=== PATIENT | male | born 1995 | race Caucasian/White ===

== ENCOUNTER 2023-05-26 22:33 | Emergency (ER) | payer OTHER, SELFPAY ==
[2023-05-26 22:35] VITALS: BP 161/103; PULSE 70; RESP 18; TEMP 37.1; O2SAT 98; BMI 32.1
--- NOTE | 2023-05-26 22:43 | ED.ABDPAIN1 ---
HPI - Abdominal Pain General Chief Complaint: Abdominal Pain Stated Complaint: SEVERE RIGHT SIDE PAIN Time Seen by Provider: 05/26/23 22:37 Source: patient Mode of arrival: walk-in History of Present Illness HPI narrative: 27-year-old male is brought emergency department by his father for evaluation of acute onset of pain in the right side of his abdomen associated with mild nausea. He denies any heavy lifting or strenuous activity prior to development of the pain. He has not vomited. He has not had a fever. His appetite is been normal today. He points to the right upper quadrant, right middle quadrant and right lower quadrant as area of greatest pain. He denies any flank pain. He has not had any urinary symptoms. He last ate eggs and sausage for dinner- his appetite has been normal today. He has not had any fever or chills. He does not have a history of kidney stones but according to the patient's father, the patient's uncle has had kidney stones. Related Data Allergies Allergy/AdvReac Type Severity Reaction Status Date / Time No Known Drug Allergies Allergy Verified 05/26/23 22:39 Review of Systems ROS Status of ROS 10 or more systems reviewed and unremarkable except as noted in history and below Exam Narrative Exam Narrative: Nurses note and vital signs reviewed and patient is not hypoxic. Blood pressure is noted to be elevated at 161/103 General: Mildly uncomfortable moderately overweight male, no respiratory distress, no active vomiting Skin: Warm, dry, no pallor noted. There is no rash noted. Head: Normocephalic, atraumatic Eye: Normal conjunctiva, no drainage, EOMI. PERRL Ears, Nose, Mouth, and Throat: oral mucosa is moist. Cardiovascular: Regular Rate and Rhythm S1S2, pulses are brisk and equal bilaterally Respiratory: Patient is in no distress, no accessory muscle use, lungs are clear to auscultation, no wheezing, rales or rhonchi Back: non-tender, no CVA tenderness bilaterally to percussion. GI:Abdomen is soft, nondistended, there is tenderness to palpation in the right upper quadrant and right lower quadrant, negative Rovsing sign, bowel sounds are normal. No appreciable hernia or pulsatile masses Musculoskeletal: The patient has no evidence of calf tenderness, no pitting edema, symmetrical pulses noted bilaterally Neurological: A&O x4, normal speech Psychiatric: Cooperative Constitutional Vital Signs, click to edit/add: Last Vital Signs Temp 98.7 F 05/26/23 22:35 Pulse 74 05/27/23 00:06 Resp 16 05/27/23 00:06 BP 149/82 H 05/27/23 00:06 Pulse Ox 100 05/27/23 00:06 O2 Del Method Room Air 05/27/23 00:06 Course Vital Signs Vital signs: Vital Signs Temperature 98.7 F 05/26/23 22:35 Pulse Rate 70 05/26/23 22:35 Respiratory Rate 18 05/26/23 22:35 Blood Pressure 161/103 H 05/26/23 22:35 Pulse Oximetry 98 05/26/23 22:35 Oxygen Delivery Method Room Air 05/26/23 22:35 Temperature 98.7 F 05/26/23 22:35 Pulse Rate 74 05/27/23 00:06 Respiratory Rate 16 05/27/23 00:06 Blood Pressure 149/82 H 05/27/23 00:06 Pulse Oximetry 100 05/27/23 00:06 Oxygen Delivery Method Room Air 05/27/23 00:06 MDM - Abdominal Pain MDM Narrative Medical decision making narrative: This otherwise healthy 27-year-old male is brought emergency department by his father for evaluation of acute onset of right-sided abdominal pain. The patient states the pain came on suddenly is associated with nausea. He denied any urinary symptoms. He had not had a fever. His appetite had been normal earlier in the day. He was mildly tender in his right upper quadrant and right lower quadrant, Rovsing's test was indeterminant, he was medicated emergency department with IV fluids, Zofran and Toradol with clinical improvement. On reevaluation he still had some degree of pain and was then medicated with an oral Percocet. He has a normal white count and hemoglobin. Electrolytes are normal with the exception of a mild elevation in his glucose. Urinalysis is negative for infection. Non contrast CT scan of the abdomen and pelvis shows a 3mm kidney stone at the right UVJ with mild hydroureter and is otherwise normal. He will be discharged home with Rx for percocet, zofran, toradol and Flomax. Medical Records Medical records narrative: [place] [address] CT Scan Report Signed Patient: GAIL DE GUZMAN MR#: [id number] : 1995 Acct:[id number] Age/Sex: 27 / M ADM Date: 05/26/23 Loc: ER Attending Dr: Ordering Physician: Winnie Mcneill Date of Service: 05/26/23 Procedure(s): CT abdomen pelvis wo con Accession Number(s): [id number] cc: Physician,Non-Staff M.D.~ [facility] [place] [address] Patient Name: GAIL DE GUZMAN MRN: [id number] date: 1995 Sex: M Assigned Patient Location: ER Current Patient Location: ER Accession/Order Number: [id number] Exam Date: 05/26/2023 22:50 Report Date: 05/26/2023 23:43 At the request of: WINNIE MCNEILL Procedure: CT abdomen pelvis wo con EXAM: CT abdomen pelvis wo con HISTORY: Right sided abd pain COMPARISON: None. TECHNIQUE: Noncontrast axial CT images through the abdomen and pelvis were obtained with coronal and sagittal reformats. Dose reduction techniques were achieved by using automated exposure control and/or adjustment of mA and/or kV according to patient size and/or use of iterative reconstruction technique. FINDINGS: The visualized portions of the lung bases are clear. Abdomen: Please note that the sensitivity for detection of focal lesions or vascular disease is markedly reduced without intravenous contrast. The liver and spleen are unremarkable. There is no intra or extrahepatic biliary duct dilatation. The gallbladder is unremarkable. There is a 2 mm nonobstructive right renal calculus. There is a 0.3 cm calculus at the right ureterovesicular junction with mild upstream hydroureter and hydronephrosis. The pancreas, adrenal glands, left kidney, and bowel loops, including the appendix, are unremarkable. There is no mesenteric or retroperitoneal lymphadenopathy. There is a small fat-containing umbilical hernia. Pelvis: The bladder demonstrates wall thickening. The rectum is unremarkable. There is no iliac or inguinal lymphadenopathy. There is a left L5 pars defect without anterolisthesis. Bone windows show no aggressive osseous lesions. CT/CT abdomen pelvis wo con IMPRESSION: 1. There is a 0.3 cm calculus at the right ureterovesicular junction with mild upstream hydroureter and hydronephrosis. 2. Nonobstructive right renal calculus. 3. Normal appendix. 4. Urinary bladder wall thickening. Please correlate with urinalysis for infection. 5. Left L5 pars defect without anterolisthesis. Lab Data Labs: Lab Results 05/26/23 05/26/23 Range/Units 22:45 23:30 WBC 9.3 (4.0-11.0) 10^3/uL RBC 4.75 (4.70-6.10) 10^6/uL Hgb 14.1 (14.0-18.0) g/dL Hct 40.9 L (42.0-54.0) % MCV 86.1 (80.0-94.0) fL MCH 29.7 (25.9-34.0) pg MCHC 34.5 (29.9-35.2) g/dL RDW 11.9 (11.0-15.0) % Plt Count 245 (150-450) 10^3/uL MPV 9.9 (9.5-13.5) fL Neut % (Auto) 60.8 (43.0-75.0) % Lymph % (Auto) 28.2 (20.5-60.0) % Coleman % (Auto) 9.0 (1.7-12.0) % Eos % (Auto) 1.5 (0.9-7.0) % Baso % (Auto) 0.3 (0.2-2.0) % Neut # (Auto) 5.7 (1.4-6.5) 10^3/uL Lymph # (Auto) 2.6 (1.2-3.8) 10^3/uL Coleman # (Auto) 0.8 (0.3-0.8) 10^3/uL Eos # (Auto) 0.1 (0.0-0.7) 10^3/uL Baso # (Auto) 0.0 (0.0-0.1) 10^3/uL Abs Immat Gran (auto) 0.02 (0.00-0.03) 10^3/uL Imm/Tot Granulo (auto) 0.2 (0.0-0.5) % Sodium 141 (136-145) mmol/L Potassium 3.4 L (3.5-5.1) mmol/L Chloride 106 (98-107) mmol/L Carbon Dioxide 25.4 (21.0-32.0) mmol/L Anion Gap 13.0 BUN 17.0 (7.0-18.0) mg/dL Creatinine 1.20 (0.70-1.30) mg/dL Est GFR ( Amer) >60 (>=60) Est GFR (Non-Af Amer) >60 (>=60) BUN/Creatinine Ratio 14.2 Glucose 140 H (74-106) mg/dL Calcium 9.0 (8.5-10.1) mg/dL Total Bilirubin 0.3 (0.2-1.0) mg/dL AST 11 L (15-37) U/L ALT 31 (16-63) U/L Alkaline Phosphatase 65 (46-116) U/L Total Protein 7.4 (6.4-8.2) g/dL Albumin 3.9 (3.4-5.0) g/dL Globulin 3.5 g/dL Albumin/Globulin Ratio 1.1 Urine Color Lt. yellow (YELLOW) Urine Clarity Clear (CLEAR) Urine pH 8.0 (5.0-9.0) Ur Specific [place] 1.015 (1.005-1.025) Urine Protein Negative (NEG/TRACE) mg/dL Urine Glucose (UA) Negative (NEGATIVE) mg/dL Urine Ketones Negative (NEGATIVE) mg/dL Urine Occult Blood Negative (NEGATIVE) Urine Nitrite Negative (NEGATIVE) Urine Bilirubin Negative (NEGATIVE) Urine Urobilinogen 0.2 (0.2-1.0) EU/dL Ur Leukocyte Esterase Negative (NEGATIVE) Urine RBC 0-2 (0-2) #/HPF Urine WBC None seen (NONE SEEN) #/HPF Ur Squamous Epith Cells None seen (NONE/RARE) #/LPF Urine Crystals None seen (None Seen) #/HPF Urine Bacteria None seen (NONE SEEN) #/HPF Urine Casts None seen (NONE SEEN) #/LPF Urine Mucus None seen (NONE SEEN) Discharge Plan Discharge Chief Complaint: Abdominal Pain Clinical Impression: Calculus of kidney Patient Disposition: Home, Self-Care Time of Disposition Decision: 23:55 Condition: Good Instructions: Kidney Stones (ED), Hydronephrosis (ED) Stand Alone Forms: Portal Instructions Referrals: Physician,Non-Staff, MD [Primary Care Provider] - 1 week
[2023-05-26] MEDS: KETOROLAC TROMETHAMINE 30 MG/ML VIAL IVP (23:03)
[2023-05-26] MEDS: ONDANSETRON PF 4 MG/2 ML VIAL IV (23:03)
[2023-05-26 23:04] LABS: Basophils Percent Auto 0.3 % (0.2-2.0); Eosinophils Absolute Auto 0.1 10^3/uL (0.0-0.7); Eosinophils Percent Auto 1.5 % (0.9-7.0); Hematocrit 40.9 % (42.0-54.0); Hemoglobin 14.1 g/dL (14.0-18.0); Immature Granulocytes Abs Auto 0.02 10^3/uL (0.00-0.03); Immature Granulocytes Pct Auto 0.2 % (0.0-0.5); Lymphocytes Absolute Auto 2.6 10^3/uL (1.2-3.8); Lymphocytes Percent Auto 28.2 % (20.5-60.0); Mean Corpuscular HGB Conc 34.5 g/dL (29.9-35.2); Mean Corpuscular Hemoglobin 29.7 pg (25.9-34.0); Mean Corpuscular Volume 86.1 fL (80.0-94.0); Mean Platelet Volume 9.9 fL (9.5-13.5); Monocytes Absolute Auto 0.8 10^3/uL (0.3-0.8); Neutrophils Absolute Auto 5.7 10^3/uL (1.4-6.5); Neutrophils Percent Auto 60.8 % (43.0-75.0); Platelet Count 245 10^3/uL (150-450); Red Blood Count 4.75 10^6/uL (4.70-6.10); Red Cell Distribution Width 11.9 % (11.0-15.0); White Blood Count 9.3 10^3/uL (4.0-11.0)
[2023-05-26 23:19] LABS: Alanine Aminotransferase 31 U/L (16-63); Albumin Globulin Ratio 1.1; Albumin Level 3.9 g/dL (3.4-5.0); Alkaline Phosphatase 65 U/L (46-116); Aspartate Amino Transferase 11 U/L (15-37); BUN Creatinine Ratio 14.2; Bilirubin Total 0.3 mg/dL (0.2-1.0); Carbon Dioxide 25.4 mmol/L (21.0-32.0); Chloride 106 mmol/L (98-107); Estimated GFR (African America >60 (>=60); Estimated GFR (Non-African Ame >60 (>=60); Globulin 3.5 g/dL; Glucose 140 mg/dL (74-106); Potassium 3.4 mmol/L (3.5-5.1); Sodium 141 mmol/L (136-145); Total Protein 7.4 g/dL (6.4-8.2)
--- NOTE | 2023-05-26 23:39 | PC.NURSE ---
URINE TO LAB, CLOUDY IN COLOR.
[2023-05-26] MEDS: OXYCODONE HCL/ACETAMINOPHEN 5MG/325MG 1 TAB PO (23:47)
[2023-05-26] MEDS: 0.9 % SODIUM CHLORIDE 1,000 ML 1000 ML IV (23:47)
[2023-05-27 00:06] VITALS: BP 149/82; PULSE 74; RESP 16; O2SAT 100
[2023-05-27 00:06] LABS: Bilirubin Urine NEGATIVE (NEGATIVE); Blood Urine NEGATIVE (NEGATIVE); Clarity Urine CLEAR (CLEAR); Color Urine LT. YELLOW (YELLOW); Glucose Urine UA NEGATIVE (NEGATIVE); Ketones Urine NEGATIVE (NEGATIVE); Leukocyte Esterase Urine NEGATIVE (NEGATIVE); Nitrite Urine NEGATIVE (NEGATIVE); Protein Urine NEGATIVE (NEG/TRACE); Specific Gravity Urine 1.015 (1.005-1.025); Urobilinogen Urine 0.2 EU/dL (0.2-1.0)
[2023-05-27 00:21] LABS: Bacteria Urine NONE SEEN #/HPF (NONE SEEN); Cast Seen? NONE SEEN #/LPF (NONE SEEN); Crystals Seen? None Seen #/HPF (None Seen); Mucus Urine NONE SEEN (NONE SEEN); RBC Urine 0-2 #/HPF (0-2); Squamous Epithelial Cell Urine NONE SEEN #/LPF (NONE/RARE); WBC Urine NONE SEEN #/HPF (NONE SEEN)
[2023-05-27] MEDS: OXYCODONE HCL/ACETAMINOPHEN 5MG/325MG 2 TAB PO (00:52)
[2023-05-27] MEDS: ONDANSETRON 4 MG RAPDIS TABLET SL (00:52)
== END 2023-05-27 01:00 | disposition home or self-care (01) ==
PROVIDERS: Emergency Provider Emergency Medicine
DX: N13.2 Hydronephrosis with renal and ureteral calculous obstruction (principal)
CPT/HCPCS: 36415; 74176; 80053; 81001; 85025; 96374; 96375; 99284; J1885; J2405; Q0162

== ENCOUNTER 2025-03-14 19:32 | Emergency (ER) | payer OTHER, SELFPAY ==
[2025-03-14 19:36] VITALS: BP 159/94; PULSE 64; TEMP 37; O2SAT 98; BMI 34.7
--- OUTSIDE RECORDS SUMMARY | 2025-03-14 19:45 | XMS_ITS | CCD ---
Author Organization [facility] Care Team Providers Care Cargo Checker Name Role Phone MECHELLE NIEVES Attending Unavailable EZEQUIEL, MECHELLE Admitting Unavailable EZEQUIEL, MECHELLE Consulting Unavailable EZEQUIEL, MECHELLE Attending Unavailable EZEQUIEL, MECHELLE Admitting Unavailable Problems Problem ClassificationProblemDateDocumented DateEpisodic/ChronicHeadache; including migraine (1 source)Headache; including migraine; Translations: [HEADACHE UNSPECIFIED] Onset: [id number] and screening for infectious disease (3 sources)Contact with and (suspected) exposure to other viral communicable diseases; Translations: [CONTCT EXPS OTH VIRL COMMUNICABL DZ]Onset: 05-09-2020 EpisodicOther upper respiratory disease (1 source)Nasal congestion; Translations: [NASAL CONGESTION]Onset: 06-13-2020 EpisodicUnclassified (1 source)COVID-19; Translations: [COVID-19]Onset: 06-13-2020 Results Test NameValueInterpretationReference RangeFacilityCovid-19 PCR (CVDTBH)on 86-93-3254Kmowz-19 PCRDETECTEDAbnormalNOT DETECTEDThe [facility] SystemComment on above:Result Comment: This test is not yet approved or cleared by the [place] FDA. When there are no FDA-approved or cleared tests available, and other criteria are met, FDA can make tests available under an emergency access mechanism called an Emergency Use Authorization (EUA). The EUA for this test is supported by the [place] of Health and Human Service's (HHS's) declaration that circumstances exist to justify the emergency use of in vitro diagnostics for the detection and/or diagnosis of the virus that causes COVID-19. This EUA will remain in effect (meaning this test can be used) for the duration of the COVID-19 declaration justifying emergency of IVDs, unless it is terminated or revoked by FDA (after which the test may no longer be used).Performed By: #### CVDTBH #### [facility] [address] [place], [place] [address] Piper Spain [facility], AvonComment on above: Result Comment: This test is not yet approved or cleared by the [place] FDA. When there are no FDA-approved or cleared tests available, and other criteria are met, FDA can make tests available under an emergency access mechanism called an Emergency Use Authorization (EUA). The EUA for this test is supported by the Cartridge Loading Operator of Health and Human Service?s (HHS?s) declaration that circumstances exist to justify the emergency use of in vitro diagnostics for the detection and/or diagnosis of the virus that causes COVID-19. This EUA will remain in effect (meaning this test can be used) for the duration of the COVID-19 declaration justifying emergency of IVDs, unless it is terminated or revoked by FDA (after which the test may no longer be used). When diagnostic testing is negative, the possibility of a false negative should be considered in the context of a patients recent exposures andthe presence of clinical signs and symptoms consistent with SARS-CoV-2.Performed By: #### CVDTBH #### [facility] [address] [place], [place] [address] Piper Moncada Encounters Encounter DateEncounter TypeCare ProviderFacilityStart: [id number] encounter procedureDAVID GIRVINFacility:Q4Iwoww: 05-09-2020 End: 07-09-2295Jpmhlkf encounter procedureDAVID GIRVINFacility:H1 Payers DatePayer CategoryPayerPolicy [id number] Summary Purpose Family History No Family History Records Found Advance Directives No Advanced Directives Records Found Additional Source Comments (unrecognized sect ion and content) No Status Records Found INFORMATION SOURCE (unrecogn ized section and content) DATE CREATED AUTHOR 06/13/2020 [facility] FOR RECORDS PERTAINING TO PATIENTS WHO ARE OR HAVE BEEN ENROLLED IN A CHEMICAL DEPENDENCY/SUBSTANCEABUSE PROGRAM, SOME INFORMATION MAY BE OMITTED. This clinical summary was aggregated from multiple sources. Caution should be exercised in using it in the provision of clinical care. This summary normalizes information from multiple sources, and as a consequence, information in this document may materially change the coding, format and clinical context of patient data. In addition, data may be omitted in some cases. CLINICAL DECISIONS SHOULD BE BASED ON THE PRIMARY CLINICAL RECORDS. [facility]. provides no warranty or guarantee of the accuracy or completeness of information in this document.
[2025-03-14] MEDS: LIDOCAINE HCL 1%-EPINEPHRINE 1:100,000 20 ML MDV 10 ML INJ (20:22)
--- NOTE | 2025-03-14 20:39 | ED.GENADUL1 ---
HPI HPI - General Adult General Chief complaint: Wound/Laceration Stated complaint: Laceration Time Seen by Provider: 03/14/25 19:41 Source: patient Mode of arrival: walk-in Limitations: no limitations History of Present Illness HPI narrative: Patient is a 29-year-old male that presents with complaints of laceration to the dorsal aspect of the third digit just slightly prior to arrival. He states that he did just change the blade on his pocket knife and ended up dropping it directly on his middle finger. He was not going to come in initially and was able to clean and achieve hemostasis of the wound but then it started bleeding again and he was concerned. He does have full range of motion of the finger. His tetanus is up-to-date. Related Data Home Medications ?Medication ?Instructions ?Recorded ?Confirmed No Known Home Medications 03/14/25 03/14/25 Allergies Allergy/AdvReac Type Severity Reaction Status Date / Time No Known Drug Allergies Allergy Verified 03/14/25 19:38 Opioid HPI Opioid Management Most Recent Opioid Data: Last Pain Scale 5 05/27/23, 00:52 Review of Systems ROS Status of ROS 10 or more systems reviewed and unremarkable except as noted in history and below PFSH PFS Social History Little interest or pleasure in doing things: not at all Feeling down, depressed, or hopeless: not at all Exam Narrative Exam Narrative: General: No distress, age-appropriate Skin: Warm, dry, no pallor. No rash. There is approximately 1 cm linear transverse laceration over the dorsal proximal phalanx area of the left third digit. Wound hemostatic on arrival. Tendon unable to be visualized in the wound. Head: Normocephalic, atraumatic. Eye: Pupils are equal, round and EOMI. No scleral icterus. Cardiovascular: Regular Rate and Rhythm without murmur, gallop or rub. Respiratory: No accessory muscle use or respiratory distress. Back: No midline thoracic or lumbar vertebral tenderness. Musculoskeletal: Full ROM of all extremities, no calf or popliteal tenderness. Patient able to fully flex and extend all joints of the left third digit. Neurological: A&O x4. No cranial nerve dysfunction observed. No truncal ataxia. Moves all extremities. Sensation intact. Psychiatric: Cooperative and interactive. Normal mood and affect. Constitutional Vital Signs, click to edit/add: Last Vital Signs Temp 98.6 F 03/14/25 19:36 Pulse 64 03/14/25 19:36 Resp 16 03/14/25 19:36 BP 159/94 H 03/14/25 19:36 Pulse Ox 98 03/14/25 19:36 O2 Del Method Room Air 03/14/25 19:36 Documenting provider has reviewed patient's vital signs: yes Course Vital Signs Vital signs: Vital Signs Temperature 98.6 F 03/14/25 19:36 Pulse Rate 64 03/14/25 19:36 Respiratory Rate 16 03/14/25 19:36 Blood Pressure 159/94 H 03/14/25 19:36 Pulse Oximetry 98 03/14/25 19:36 Oxygen Delivery Method Room Air 03/14/25 19:36 Temperature 98.6 F 03/14/25 19:36 Pulse Rate 64 03/14/25 19:36 Respiratory Rate 16 03/14/25 19:36 Blood Pressure 159/94 H 03/14/25 19:36 Pulse Oximetry 98 03/14/25 19:36 Oxygen Delivery Method Room Air 03/14/25 19:36 Medical Decision Making MDM Narrative Medical decision making narrative: This is a 29-year-old male that presents with complaints of laceration to the left dorsal aspect of the third digit after he dropped a knife with a new blade directly onto his finger. He initially was not going to come in and had the bleeding controlled but about an hour later it started to profusely bleed again. On arrival there is a 1 cm laceration overlying the dorsal aspect of the proximal phalanx, wound is hemostatic. Wound is not over either joint. Upon inspection of the wound no tendon exposure, patient able to fully flex and extend all joints of the third digit. Tendon laceration not likely. While irrigating the wound it did start to bleed again, venous oozing appreciated. No vein able to be visualized. Hemostasis was achieved with 4 Prolene sutures. Will splint the finger for tonight to prevent further bleeding. I discussed with patient as he is a zaidi that he should limit gripping/pushing/pulling with this hand until wound is fully healed and sutures removed in 5-7 days. He will follow-up with his PCP for suture removal. No antibiotics indicated at this time. Wound care instructions given. Return to ED precautions given for any signs of infection. Patient discharged in stable condition, pain controlled, wound hemostatic, with plans for follow-up with PCP for suture removal. Differential Diagnosis Differential Diagnosis: Tendon laceration, grossly contaminated laceration Discharge Plan Discharge Chief Complaint: Wound/Laceration Clinical Impression: Laceration of finger of left hand Patient Disposition: Home, Self-Care Time of Disposition Decision: 20:45 Condition: Good Mode of Transportation: Private Vehicle Prescriptions / Home Meds: No Action No Known Home Medications Print Language: Japanese Instructions: Finger Laceration (ED) Additional Instructions: Have stitches removed in 5-7 days by primary care provider or return to the emergency department. Cover wound if draining or if in dirty environments. Minimize pushing/pulling/lifting with the left hand. Monitor wound for signs of infection including redness, increasing redness, odorous drainage, sick south or brown drainage. Do not submerge wound in water until fully healed and stitches removed. Wash wound daily with soap and water and pat dry. Referrals: Physician,Non-Staff, MD [Primary Care Provider] - 1 week Discharge Date/Time: 03/14/25 21:01 Procedures ED Laceration Laceration Laceration 1: Site: hand Side (if applicable): left Size (cm): 1 Description: linear Depth: simple, single layer Anesthetic used: with epi Anesthesia technique: local infiltration Amount (ml): 1 Pre-repair: wound explored, irrigated extensively, deep structures intact and wound margins revised Skin layer closed with: other Size (cm): 5-0 Number of sutures: 4 Technique: simple, interrupted
== END 2025-03-14 21:01 | disposition home or self-care (01) ==
PROVIDERS: Emergency Provider Internal Medicine
DX: S61.213A Laceration without foreign body of left middle finger without damage to nail, initial encounter (principal); W26.0XXA Contact with knife, initial encounter
CPT/HCPCS: 12001; 99282